=== PATIENT | male | born 1955 | race African-American/Black ===

== ENCOUNTER 2025-03-19 11:29 | Outpatient (CLI) | payer MEDICARE, SELFPAY ==
--- NOTE | 2025-03-19 | ECG_ITS ---
Test Date: 2025-03-19 12:03:54 Measurements Intervals [place] Rate: 99 P: 74 NV: 130 QRS: 51 QRSD: 90 T: 66 QT: 366 QTc: 471 Interpretive Statements SINUS RHYTHM WITH SINUS ARRHYTHMIA RIGHT ATRIAL ENLARGEMENT LEFT ATRIAL ENLARGEMENT ST ELEVATION IN ANTEROLATERAL LEALDS- PROBABLY EARLY REPOLARIZATION BASELINE ARTIFACT- I, II, III, AVR, AVL, AVF, V1-V2 BORDERLINE ECG No previous ECG available for comparison Electronically Signed On 03-20-2025 06:22:17 CDT by Hakeem Clark D.O.
--- OUTSIDE RECORDS SUMMARY | 2025-03-19 11:45 | XMS_ITS | Clinical Summary ---
Author Organization [facility] Address [address] [place] [address] Care Team Providers Care Trimmer Machine Name Role Phone Edel Lopez MD Primary Care Provider Source Comments [facility] [place],non-owned Affiliates and Associated Physician Practices is amultiple site organization consisting of ambulatory clinics and hospital sitesin [place], [place], [place]. This disclosure is being madepursuant to the Care Everywhere program and may not contain all information available regarding this patient. Last updated 18.[facility] Allergies No known active allergies Medications * Be aware that medications may not be up to date on this document. Alwaysverify current medications with the patient. atorvastatin (Lipitor) 10 MG tablet Take 1 (one) tablet by mouth as directed 11/28/2022 Active Narcan 4 MG/0.1ML nasal spray Joaquin 1 (one) spray into the nose as directed 01/03/2023 Active NIFEdipine CR osmotic 24hr (Procardia-XL) 30 MG tablet Take 1 (one) tablet by mouth once daily for blood pressure 11/09/2022 Active lidocaine (Lidoderm) 5 % patch apply ONE PATCH TO THE affected area(s) of THE SKIN ONCE daily FOR 12 hours (MAY wear UP TO 12 hours on/12 hours off) 01/05/2023 Active Xarelto 20 MG tablet Take 1 (one) tablet by mouth once daily 02/06/2023 Active DULoxetine (Cymbalta) 60 MG capsule Take 1 (one) capsule by mouth once daily Active HYDROcodone-melvi taminophen ([place]) 7.5-325 MG tablet Take 1 (one) tablet by mouth 3 times daily as needed Active Jardiance 25 MG tablet TAKE 1 TABLET BY MOUTH EVERY DAY DIRECTED FOR DIABETES MELLITUS Active metoprolol tartrate IR (Lopressor) 25 MG tablet Take 1 (one) tablet by mouth 2 times daily Active omeprazole (PriLOSEC) 40 MG capsule Take 1 (one) capsule by mouth once daily Active pioglitazone (Actos) 15 MG tablet Take 1 (one) tablet by mouth every morning for diabetes 06/03/2024 Active Active Problems Problem Noted Date Diagnosed Date CLL (chronic lymphocytic leukemia) 04/04/2023 Gastrointestinal hemorrhage 04/04/202303/20 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 Neck pain 02/08/2023 04/04/2023 Atrial fibrillation 02/06/2023 04/04/2023 Pulmonary emphysema 02/13/2022 04/04/2023 Localized, primary osteoarthritis of shoulder re gion 03/03/2021 04/04/2023 Steatosis of liver 12/02/2020 04/04/2023 Chronic alcoholism in remission 09/27/2020 04/04/2023 History of cervical spinal arthrodesis 9 04/04/2023 Mixed anxiety and depressive disorder 06/22/2019 04/04/2023 Personal history of malignant neoplasm of prosta te 11/26/2017 04/04/2023 Type 2 or unspecified type diabetes mellitus 04/04/2023 Malignant neoplasm of prostate 08/14/2017 Pre-op examination 08/14/2017 Benign hypertension 10/06/2016 04/04/2023 Cardiomyopathy 10/06/2016 04/04/2023 Current smoker 10/06/2016 04/04/2023 Other and unspecified hyperlipidemia 10/06/2016 04/04/2023 Encounters Date Type Department Care Team Description 03/05/2025 Orders Only [facility] [address] [place] [address] Gabibe Roman MD CLL (chronic lymphocytic leukemia) (HCC) 03/05/2025 Telephone [facility] [address] [place] [address] Kori Hightower 01/30/2025 Telephone [facility] [address] [place] [address] Shefali Casey 01/23/2025 Telephone [facility] [address] [place] [address] Mariola Still RN 01/23/2025 Telephone [facility] [address] [place] [address] Kori Hightower 01/22/2025 Telephone [facility] [address] [place] [address] Hightower, Kori 01/22/2025 Orders Only [facility] - Hematology/Oncology [address] [place] [address] Gabbie Roman MD CLL (chronic lymphocytic leukemia) (HCC) from Last 3 Months Immunizations Immunization Administration Dates Next Due COVID MODERNA BIVALENT 12Y+ 50MCG/0.5ML 04/29/20 Covid Moderna primary monova lent 12+ yr 0.5mL 12/14/2020,11/09/2020 Covid Moderna primary monova lent 6m-5yr 0.25ml 05/03/2022 Covid Pfizer primary monoval ent 12+ yr 0.3mL Purple cap 05/03/2022,07/27/2021 FLU VACCINE QUAD IIV4 SPLIT 0.25 ML IM ,05/18/2020,05/20/2019 FLU VACCINE TRI IIV3 SPLIT IM (FLUVIRIN) 017,05/14/2014,06/03/2013 INFLUENZA VACCINE 05/03/2022 INFLUENZA VACCINE, ADJUVANTE D, QUADR. (FLUAD QUADRIVALENT; 65Y+) (AIIV4) 04/29/2023,05/03/2022 INFLUENZA VACCINE, CELL CULT URE, QUADR. (FLUCELVAX QUADRIVALENT; 6MO+) (CCIIV4) 05/19/2020,05/30/2018 INFLUENZA VACCINE, TRIV. (FL UZONE; FLULAVAL; FLUARIX; AFLURIA TRIVALENT; 6MO+), 0.5 ML (IIV3) 04/27/2016,05/26/2015 PNEUMOCOCCAL PPSV23 03/30/2021,08/04/2019 Pneumococcal Pcv13 Conj 02/16/2021 TDAP (7yrs+) 08/17/2022,08/21/2016 Social History Tobacco Use Types Packs/Day Years Used Date Smoking Tobacco: Every Day Cigarettes Smokeless Tobacco: Never Tobacco Cessation:Ready to Q uit: Not Asked; Counseling Given: Not Answered Comments:Attempting to qiut Alcohol Use Standard Drinks/Week Comments Not Currently 0 (1 standard drink = 0.6 oz pur e alcohol) AUDIT-C Answer Date Recorded Q1: How often do you have a drink containing alcohol? Never 02/05/2023 Q2: How many drinks containi ng alcohol do you have on a typical day when you are drinking? Patient does not drink Q3: How often do you have si x or more drinks on one occasion? Never 02/05/2023 Sex and Gender Information Value Date Recorded Sex Assigned at Not on file Legal Sex Male 6:33 AM [employer] LEADER Gender Identity Not on file Sexual Orientation Not on file Last Filed Vital Signs Vital Sign Reading Time Taken Comments Blood Pressure 131/80 10/13/2024 9:14 AM [employer] LEADER Pulse 93 10/13/2024 9:14 AM [employer] LEADER Temperature 36.8 C (98.3 F) 10/13/2024 9:14 AM [employer] LEADER Respiratory Rate 18 09/26/2024 12:56 PM [employer] LEADER Oxygen Saturation 96% 10/13/2024 9:14 AM [employer] LEADER Inhaled Oxygen Concentration - - Weight 93 kg (205 lb) 10/13/2024 9:14 AM [employer] LEADER Height 185.4 cm (6' 1) 10/13/2024 9:14 AM [employer] LEADER Body Mass Index 27.05 10/13/2024 9:14 AM [employer] LEADER Plan of Treatment Upcoming Encounters Date Type Department Care Team (Late st Contact Info) Description 03/25/2025 2:00 PM CDT Appointment [facility] [address] [place] [address] Gabbie Roman MD [address] [place] [address] Health Maintenance Due Date Last Done Comments COLOGUARD (AGES 45-75) - COLON CA SCREENING 1955 CT COLONOGRAPHY - COLON CA SCREENING 1955 FIT - COLON CA SCREENING 1955 FLEX SIG - COLON CA SCREENING 1955 ZOSTER VACCINE (1 of 2) 11/02/1974 Respiratory Syncytial Virus (RSV) Vaccine Pt: or over 60 yrs (1 - Risk 60-74 years 1-dose series) 2015 COLON MONITORING 10/31/2020 10/31/2010 COLONOSCOPY - COLON CA SCREENING 10/31/2020 10/31/2010 Colorectal Cancer Screening 10/31/2020 AAA SCREENING 11/02/2020 DIABETES RETINOPATHY SCREENING 04/04/2023 DIABETES-FOOT EXAM WITH MONOFILAMENT 04/04/2023 DIABETES-HGB A1C 04/04/2023 08/10/2016 COVID-19 VACCINE ( season) 2024 04/29/2023, 05/03/2022, 05/03/2022, Additional history exists DEPRESSION SCREENING 08/20/2024 DIABETES - URINE PROTEIN SCREENING 08/20/2024 MEDICARE AWV CALENDAR YEAR 2024 INFLUENZA VACCINE (#1) 2025 , 04/29/2023, 05/03/2022, Additional history exists DIABETES-SERUM CREATININE 09/26/20252024, 06/20/2024, 11/21/2023, Additional history exists DTAP/TDAP/TD VACCINES (3 - Td or Tdap) 08/17/2032 08/17/2022, 08/21/2016 PNEUMOCOCCAL VACCINE 50+ Completed 021, 02/16/2021, 08/04/2019 HEPATITIS C SCREENING Completed 04/04/2023 HEPATITIS B VACCINE Aged Out No longe r eligible based on patient's age to complete this topic HIB VACCINE Aged Out No longer eligi ble based on patient's age to complete this topic HPV VACCINE Aged Out No longer eligi ble based on patient's age to complete this topic MENINGOCOCCAL (Group B) VACCINE SHARED DECISION-MAKING Aged Out No longer eligible based on patient's age to complete this topic MENINGOCOCCAL GROUPS A/C/Y/W VACCINE Aged Out No longer eligible based on patient's age to complete this topic Procedures Procedure Name Priority Date/Time Associated Diagnosis Comments COMPREHENSIVE METABOLIC PANEL STAT 09/26/2024 12:34 PM [employer] CLL (chronic lymphocytic leukemia) HEPATITIS C ANTIBODY Routine 04/04/2023 11:18 AM CDT Lymphocytic lymphoma HEMOGLOBIN A1C Routine 08/10/2016 11:44 PM [employer]ER ENDOSCOPY, COLON, SCREENING Routine 10/31/2010 from Last 3 Months or Most Recently Relevant to Health Maintenance Results * (ABNORMAL) COMPREHENSIVE METABOLIC PANEL (09/26/2024 12:34 PM [employer] LE[employer]ER) BUN 22 7 - 26 mg/dL 09/26/2024 1:10 PM [facility] Creatinine 1.01 0.71 - 1.16 mg/dL 09/26/2024 1:10 PM [facility] Sodium 138 136 - 145 mmol/L 09/26/2024 1:10 PM [facility] Potassium 4.3 3.5 - 4.5 mmol/L 09/26/2024 1:10 PM [facility] Chloride 101 98 - 107 mmol/L 09/26/2024 1:10 PM [facility] CO2 25 22 - 29 mmol/L 09/26/2024 1:10 PM [facility] Glucose 163(H) 70 - 99 mg/dL 09/26/2024 1:10 PM [facility] Calcium 10.1 8.4 - 10.2 mg/dL 09/26/2024 1:10 PM [facility] Protein Total 7.3 6.0 - 8.3 g/dL 09/26/2024 1:10 PM [facility] Albumin 5.0 3.4 - 5.0 g/dL 09/26/2024 1:10 PM [facility] Bilirubin Total 1.0 0.2 - 1.2 mg/dL 09/26/2024 1:10 PM [facility] Alkaline Phosphatase 96 40 - 150 U/L 09/26/2024 1:10 PM [facility] ALT 21 5 - 55 U/L 09/26/2024 1:10 PM [facility] AST 21 5 - 34 U/L 09/26/2024 1:10 PM [facility] Anion Gap 12 6 - 16 09/26/2024 1:10 PM [facility] BUN/Creatinine Ratio 22 7 - 23 09/26/2024 1:10 PM [facility] Osmolality Calculated 293 275 - 295 mOsm/kg 09/26/2024 1:10 PM [facility] Albumin/Globulin Ratio 2.2 1.1 - 2.3 09/26/2024 1:10 PM [facility] eGFR by CKD-EPI 81(L) >=90 mL/min/1.7 3 m2 09/26/2024 1:10 PM [facility] Blood BLOOD SPECIMEN / Unknown Venipuncture / Unknown 09/26/2024 12:34 PM [employer] 09/26/2024 12:39 PM [employer] Gabbie Roman MD LAB - CHEMISTRY ORDERABLES Final Result Performing Organization Address [facility]/ZIP Co de Phone Number [address] [address], [facility] [phone] * HEPATITIS C ANTIBODY (04/04/2023 11:18 AM CDT) [facility] Hepatitis C Antibody Non-react gregorio Non-reac tive 04/04/2023 12:22 PM CDT [facility] Comment:Hepatitis C Antibody screen indicates no serologic evidence of past or current infection with Hepatitis C Virus. Patients with unexplained liver disease who are immunocompromised or suspected of having acute Hepatitis C infection may benefit from Nucleic Acid Test (TED) for Hepatitis C Viral RNA to confirm Hepatitis C status. Blood BLOOD SPECIMEN / Unknown Venipuncture / Unknown 04/04/2023 11:18 AM CDT 04/04/2023 11:25 AM CDT us Gabbie Roman MD LAB - CHEMISTRY ORDERABLES Final Result Performing Organization Address City/[facility]/ZIP Co de Phone Number [address] [address], [facility] [phone] * HEMOGLOBIN A1C (08/10/2016 11:44 PM [employer] LE[employer]) Hemoglobin A1c 6.1 4.4 - 6.3 % [facility] Estimated Average Glucose 128 mg/dL [facility] Comment: HbA1c Interpretation: Treatment target values recommended by ADA and other clinical organizations should be used to evaluate metabolic control in patients. Treatment Target Values: Normal : < 5.7% Pre-diabetes: 5.7-6.4% Diabetes: Equal to or greater than 6.5% Reference: [place] Diabetes Association Standards of Care in Diabetes -2014 In patients 70 years and older consider HbA1c target range of 7.0-7.5% Reference: Diabetes Mellitus in Older People: Position Statement on behalf of the International Association of Gerontology and Geriatrics (IAGG), the Diabetes Working Constitution Party for Older People (EDWPOP), and the International Task Force of Experts in Diabetes. Noam Epps, et al. J [place] [employer] Association. 2012 Test results diagnostic of diabetes should be repeated for confirmation. The Tosoh G8 assay for the measurement of HbA1c is a National Glycohemoglobin Standardization Program (NGSP)certified method. Results for patients with HbE disease should be interpreted with caution as this hemoglobinopathy has been shown to interfere with the Tosoh G8 assay. Blood specimen (specimen) BLOOD SPECIMEN / Unknown 08/10/2016 11:44 PM [employer] LE[employer]ER 08/11/2016 7:33 AM [employer] LEADER us Ced Larios MD LAB - CHEMISTRY ORDERABLES Fi nal Result [address] [phone] * ENDOSCOPY, COLON, SCREENING (10/31/2010) Diane South DO GI PROCEDURE ORDERABLES Final Result from Last 3 Months or Most Recently Relevant to Health Maintenance Insurance [employer] MEDICARE ADV HMO & PPO [facility] MEDICARE ADV Advance Directives * Full Code (Latest Code Status on File) Date Activated Date Inactivated Comments 08/14/2017 12:04 PM 08/17/2017 1:33 PM Care Teams Trimmer Machine Relationship Specialty Start Date End Date Edel Lopez MD [address] [place], [place] [phone] PCP - General Internal Medicine 02/06/23
--- OUTSIDE RECORDS SUMMARY | 2025-03-19 11:45 | XMS_ITS | Clinical Summary ---
Author Organization [facility] Address [address] [place] [address] Phone Care Team Providers Care Research Hydrologist Name Role Phone Edel Lopez MD Primary Care Provider Allergies No known active allergies Medications NIFEdipine (PROCARDIA-XL) 30 MG TABLET SR 24 HR TAKE ONE TABLET BY MOUTH EVERY DAY FOR BLOOD PRESSURE 3 Active atorvastatin (LIPITOR) 10 MG Tablet TAKE ONE TABLET BY MOUTH EVERY DAY TO LOWER CHOLESTEROL 3 Active DULoxetine (CYMBALTA) [address] Particles Take 60 mg by mouth daily. 3 Active HYDROcodone-melvi taminophen ([place]) 5-325 MG Tablet TAKE ONE TABLET BY MOUTH THREE TIMES DAILY NEEDED 3 Active Ferrous Sulfate (Iron) 325 (65 Fe) MG Tablet Take by mouth. A ctive Multiple Vitamin (MULTIVITAMIN PO) Take by mouth. Activ e Active Problems Problem Noted Date Diagnosed Date Prostate cancer 01/23/2023 Diabetes mellitus 06/01/2020 Benign hypertension 06/01/2020 Immunizations Immunization Administration Dates Next Due Influenza Vaccine, MDCK,quadrivalent, pres free 05/19/2020 Influenza, Quadrivalent, Adjuvanted 05/03/2022 Family History Medical History Relation Name Comments Cancer Brother High Cholesterol Father Stroke Father Diabetes Mother Hypertension Mother Breast Cancer Sister Relation Name Status Comments Brother pancreatic Father Mother Sister Social History Tobacco Use Types Packs/Day Years Used Date Smoking Tobacco: Every Day Cigarettes Smokeless Tobacco: Never Alcohol Use Standard Drinks/Week Comments Not Currently 0 (1 standard drink = 0.6 oz pur e alcohol) Sex and Gender Information Value Date Recorded Sex Assigned at Not on file Legal Sex Male 3:40 PM CDT Gender Identity Not on file Sexual Orientation Not on file Last Filed Vital Signs Vital Sign Reading Time Taken Comments Blood Pressure 142/96 02/06/2023 11:11 AM CDT Pulse 126 02/06/2023 11:11 AM CDT Temperature 36.6 C (97.8 F) 02/06/2023 11:11 AM CDT Respiratory Rate 18 02/06/2023 11:1 1 AM CDT Oxygen Saturation 97% 02/06/2023 11: 11 AM CDT Inhaled Oxygen Concentration - - Weight 98.8 kg (217 lb 14.4 oz) 023 11:11 AM CDT Height 185.4 cm (6' 1) 02/06/2023 11:1 1 AM CDT Body Mass Index 28.75 02/06/2023 11:11 AM CDT Plan of Treatment Health Maintenance Due Date Last Done Comments Diabetes: Eye Exam 1955 Diabetes: Foot Exam 1955 Diabetes: Hemoglobin A1c 1955 Hepatitis C Virus (HCV) Screening 1955 Zoster Immunization (1 of 2) 11/02/1974 Cologuard 11/02/2000 Immunochemical Fecal Occult Blood 11/02/2000 Diabetes: Nephropathy Screening 02/07/2024 02/06/2023, 01/23/2023 SARS-COV-2 Immunization ( season) 2024 04/29/2023, 05/03/2022, 07/27/2021, Additional history exists Influenza Immunization (#1) 2025 09, 05/03/2022, 05/25/2021, Additional history exists Respiratory Syncytial Virus (RSV) Immunization (Adult) (1 - 1-dose 75+ series) 11/02/2030 Colonoscopy 01/31/2031 01/31/2021, 06/27/2020 Colorectal Cancer Screening 01/31/2031 Pneumococcal Immunization (50+ years) Completed 03/30/2021, 02/16/2021, 08/04/2019 DTaP/Tdap/Td Immunization Discontinued 08/17/2022, 09/2016 TdaP Immunization Completed 08/17/2022, 08/21/2016 Hepatitis B Immunization Aged Out No longer eligible based on patient's age to complete this topic Human Papillomavirus (HPV) Immunization Aged Out No longer eligible based on patient's age to complete this topic Meningococcal Immunization (ACWY) Aged Out No longer eligible based on patient's age to complete this topic Rotavirus Immunization Aged Out No lo nger eligible based on patient's age to complete this topic Procedures Procedure Name Priority Date/Time Associated Diagnosis Comments CMP (COMPREHENSIVE METABOLIC PANEL) Routine 02/06/2023 11:49 AM CDT Serum calcium elevated from Last 3 Months or Most Recently Relevant to Health Maintenance Results * (ABNORMAL) CMP (COMPREHENSIVE METABOLIC PANEL) (02/06/2023 11:49 AM CDT) Glucose 284(H) 70 - 105 mg/dL [facility] Blood Urea Nitrogen 21 7 - 25 mg/dL [facility] Creatinine 1.2 0.7 - 1.3 mg/dL [facility] Sodium 138 136 - 145 mEq/L [facility] Potassium 4.5 3.5 - 5.1 mEq/L [facility] Chloride 101 98 - 107 mEq/L [facility] Bicarbonate 27 21 - 31 mEq/L [facility] Total Bilirubin 0.8 0.3 - 1.0 mg/dL [facility] Alk. Phosphatase 99 34 - 104 U/L [facility] Aspartate Aminotransferase 15 13 - 39 U/L [facility] Alanine Aminotransferase 21 7 - 52 U/L [facility] Total Protein 6.4 6.4 - 8.9 g/dL [facility] Albumin 4.5 3.5 - 5.7 g/dL [facility] Calcium 10.0 8.6 - 10.3 mg/dL [facility] Anion Gap 14.5 7.0 - 15.0 mEq/L [facility] Globulin 1.9(L) 2.0 - 3.5 g/dL [facility] EGFR 66 >60 ml/min/1. 73m2 [facility] Comment: This eGFR is calculated using 2020 CKD-EPI Creatinine equation without race modifier based on the NKF-ASN task force recommendations Blood 02/06/2023 11:4 9 AM CDT Narrative [facility] - 02/06/2023 12:51 PM CDT Release to patient->Immediate IS THE PATIENT REQUIRED TO BE FASTING FOR 8 HOURS?->No Shirlene Ng MD CHEMISTRY ORDERABLES Final Resul t [facility] [address] [phone], from Last 3 Months or Most Recently Relevant to Health Maintenance Insurance MEDICARE C [employer] MEDICARE C [employer] Care Teams Research Hydrologist Relationship Specialty Start Date End Date Edel Lopez MD [address] [place] [address] PCP - General Internal Medicine 01/16/23
--- OUTSIDE RECORDS SUMMARY | 2025-03-19 11:45 | XMS_ITS ---
Author Organization [facility] Address [address] [place] [address] Care Team Providers Care Oracle Fusion Middleware Developer Name Role Phone Edel Lopez MD Primary Care Provider Active Problems Problem Noted Date Diagnosed Date [...] 04/04/2023 Other and unspecified hyperlipidemia 10/06/2016 04/04/2023 Current Treatment and Therapy Plans No current plan information found. Past Treatment and Therapy Plans No past plan information found. Lifetime Dose Tracking * Chemical Lifetime Dose Automatic Entry Manual Entr y Dose Length Product 2,951.5 mGy-cm 2,951.5 mGy-cm 0 mG y-cm
[2025-03-19 12:51] LABS: Hematocrit 46.9 % (42.0-52.0); Hemoglobin 15.6 g/dL (14.0-18.0); Immature Granulocyte Percent A 0.5 % (0-0.5); Lymphocytes Absolute Auto 7.77 K/mm3 (0.9-3.2); Mean Corpuscular HGB Conc 33.3 g/dl (32-36); Mean Corpuscular Hemoglobin 31.0 pg (26-34); Mean Corpuscular Volume 93.1 fl (80-100); Nucleated Red Blood Cells Absolute Auto 0.000 K/mm3 (0.0-0.012); Nucleated Red Blood Cells Perc 0.0 % (0.0-0.2); Platelet Count Result 149 k/mm3 (150-375); Red Blood Count 5.04 M/mm3 (4.6-6.20); White Blood Count 14.3 K/mm3 (4.5-10.0)
[2025-03-19 13:22] LABS: Add Urine Microscopic? YES; Appearance Urine Clear (Clear); Glucose Urine UA Negative (Negative); Leukocyte Esterase Ur 2+ LEU/UL (Negative); Need Manual Microscopic Reviewed; Nitrate Urine Positive (Negative); Non Pathogenic Casts 0-2; Specific Grav Ur 1.023 (1.001-1.035)
[2025-03-19 13:23] LABS: Alanine Aminotransferase 75 U/L (6-50); Albumin Level 4.8 g/dL (3.5-5.1); Alkaline Phosphatase 79 U/L (38-126); Anion Gap 10 mmol/L (4-12); Aspartate Amino Transferase 63 U/L (17-59); Bilirubin,Total 1.0 mg/dL (0.2-1.3); Blood Urea Nitrogen 17 mg/dL (9-20); CRP < 0.5 mg/dL (<1.0); Calcium 10.4 mg/dL (8.4-10.2); Carbon Dioxide 27 mmol/L (22-30); Chloride 96 mmol/L (98-107); Estimated Glomerular Filt Rate > 60; Glucose 174 mg/dL (65-110); Potassium 3.7 mmol/L (3.4-5.0); Sodium 133 mmol/L (137-145); Total Protein 7.5 g/dL (6.3-8.2)
== END 2025-03-19 11:30 | disposition home or self-care (01) ==
PROVIDERS: PCP Internal Medicine Infectious Disease; Visit Provider Nurse Practitioner Family
DX: Z01.818 Encounter for other preprocedural examination (principal); Z79.899 Other long term (current) drug therapy
CPT/HCPCS: 36415; 80053; 81001; 85025; 85652; 86140; 87086; 93005

== ENCOUNTER 2025-03-31 07:57 | Outpatient (CLI) | payer MEDICARE, SELFPAY ==
--- OUTSIDE RECORDS SUMMARY | 2025-03-31 08:02 | XMS_ITS | Clinical Summary ---
Author Organization [facility] Address [address] [place] [address] Care Team Providers Care Clinical Massage Therapist Name Role Phone Edel Lopez MD Primary Care Provider Source Comments [facility] [employer],non-owned Affiliates and Associated Physician Practices is amultiple site organization consisting of ambulatory clinics and hospital sitesin [place], [place], [place] and [place]. This disclosure is being madepursuant to the Care Everywhere program and may not contain all information available regarding this patient. Last updated 18.[facility] [employer] Allergies No known active allergies Medications * Be aware that medications may not be up to date on this document. Alwaysverify current medications with the patient. atorvastatin (Lipitor) 10 MG tablet Take 1 (one) tablet by mouth as directed 11/28/2022 Active Narcan 4 MG/0.1ML nasal spray [place] 1 (one) spray into the nose as [...] by mouth once daily Active HYDROcodone-melvi taminophen ([place]) 7.5-325 MG tablet Take 1 (one) tablet [...] Encounters Date Type Department Care Team Description 03/24/2025 Orders Only [facility] [address] [place] [address] Gabbie Roman MD CLL (chronic lymphocytic leukemia) (HCC) 03/24/2025 Telephone [facility] [address] [place] [address] Kori Hightower 03/05/2025 Orders Only [facility] [address] [place] [phone] Gabbie Roman MD CLL (chronic lymphocytic leukemia) ([facility]) 03/05/2025 Telephone [facility] [address] [place] [address] Kori Hightower 01/30/2025 Telephone [facility] [address] [place] [phone] Shefali Casey 01/23/2025 Telephone [facility] [address] [place] [address] Mariola Still RN 01/23/2025 Telephone [facility] [address] [place] [address] Kori Hightower 01/22/2025 Telephone [facility] [address] [place] [address] Campbell, Kori 01/22/2025 Orders Only [facility] - Hematology/Oncology [address] [place] [phone] Gabbie Roman MD CLL (chronic lymphocytic leukemia) ([facility]) from Last 3 Months Immunizations Immunization Administration [...] on file Legal Sex Male 6:33 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 Gender Identity Not on file Sexual Orientation Not on file Last Filed Vital Signs Vital Sign Reading Time Taken Comments Blood Pressure 131/80 10/13/2024 9:14 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 Pulse 93 10/13/2024 9:14 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 Temperature 36.8 C (98.3 F) 10/13/2024 9:14 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 Respiratory Rate 18 09/26/2024 12:56 PM [employer] Oxygen Saturation 96% 10/13/2024 9:14 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 Inhaled Oxygen Concentration - - Weight 93 kg (205 lb) 10/13/2024 9:14 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 Height 185.4 cm (6' 1) 10/13/2024 9:14 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 Body Mass Index 27.05 10/13/2024 9:14 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 Plan of Treatment Health Maintenance Due Date [...] COMPREHENSIVE METABOLIC PANEL STAT 09/26/2024 12:34 PM [employer] CLL (chronic lymphocytic leukemia) HEPATITIS C ANTIBODY Routine 04/04/2023 11:18 AM CDT Lymphocytic lymphoma HEMOGLOBIN A1C Routine 08/10/2016 11:44 PM [employer] ENDOSCOPY, COLON, SCREENING Routine 10/31/2010 from Last 3 Months or Most Recently Relevant to Health Maintenance Results * (ABNORMAL) COMPREHENSIVE METABOLIC PANEL (09/26/2024 12:34 PM [employer]) BUN 22 7 - 26 mg/dL 09/26/2024 1:10 PM [facility] Creatinine 1.01 0.71 - 1.16 mg/dL 09/26/2024 1:10 PM [facility] Sodium 138 136 - 145 mmol/L 09/26/2024 1:10 PM [facility] Potassium 4.3 3.5 - 4.5 mmol/L 09/26/2024 1:10 PM [facility] Chloride 101 98 - 107 mmol/L 09/26/2024 1:10 PM [facility] CO2 25 22 - 29 mmol/L 09/26/2024 1:10 PM [facility] Glucose 163(H) 70 - 99 mg/dL 09/26/2024 1:10 PM [facility] Calcium 10.1 8.4 - 10.2 mg/dL 09/26/2024 1:10 PM [facility] Protein Total 7.3 6.0 - 8.3 g/dL 09/26/2024 1:10 PM [facility] Albumin 5.0 3.4 - 5.0 g/dL 09/26/2024 1:10 PM [facility] Bilirubin Total 1.0 0.2 - 1.2 mg/dL 09/26/2024 1:10 PM [facility] Alkaline Phosphatase 96 40 - 150 U/L 09/26/2024 1:10 PM [facility] ALT 21 5 - 55 U/L 09/26/2024 1:10 PM [facility] AST 21 5 - 34 U/L 09/26/2024 1:10 PM [facility] Anion Gap 12 6 - 16 09/26/2024 1:10 PM [facility] BUN/Creatinine Ratio 22 7 - 23 09/26/2024 1:10 PM [facility] Osmolality Calculated 293 275 - 295 mOsm/kg 09/26/2024 1:10 PM [facility] Albumin/Globulin Ratio 2.2 1.1 - 2.3 09/26/2024 1:10 PM [facility] eGFR by CKD-EPI 81(L) >=90 mL/min/1.7 3 m2 09/26/2024 1:10 PM [facility] Blood BLOOD SPECIMEN / Unknown Venipuncture / Unknown 09/26/2024 12:34 PM [facility] [facility] 09/26/2024 12:39 PM [employer] Gabbie Roman MD LAB - CHEMISTRY ORDERABLES Final Result Performing Organization Address City/[facility]/ZIP Co de Phone Number [address] [address], [facility] [phone] * HEPATITIS C ANTIBODY (04/04/2023 11:18 AM CDT) Pathologist [facility] Hepatitis C Antibody Non-react gregorio Non-reac tive 04/04/2023 12:22 PM [facility] Comment:Hepatitis C Antibody screen indicates no [...] 11:18 AM CDT 04/04/2023 11:25 AM CDT Gabbie Roman MD LAB - CHEMISTRY ORDERABLES Final Result Performing Organization Address City/[facility]/ZIP Co de Phone Number [address] [address], [place] [phone] * HEMOGLOBIN A1C (08/10/2016 11:44 PM [employer]) Hemoglobin A1c 6.1 4.4 - 6.3 % [facility] Estimated Average Glucose 128 mg/dL [facility] Comment: HbA1c Interpretation: Treatment target values recommended by ADA and other clinical organizations should be used to evaluate metabolic control in patients. Treatment Target Values: Normal : < 5.7% Pre-diabetes: 5.7-6.4% Diabetes: Equal to or greater than 6.5% Reference: [place] [employer] Standards of Care in Diabetes -2014 In patients 70 years and older consider HbA1c target range of 7.0-7.5% Reference: Diabetes Mellitus in Older People: Position Statement on behalf of the International Association of Gerontology and Geriatrics (IAGG), the Diabetes Working Republican for Older People (EDWPOP), and the International Task Force of Experts in Diabetes. Noam Epps, et al. J [place] [employer]. 2012 Test results diagnostic [...] BLOOD SPECIMEN / Unknown 08/10/2016 11:44 PM [employer] 08/11/2016 7:33 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 Ced Larios MD LAB - CHEMISTRY ORDERABLES Fi nal Result [facility] [place] [address], [facility] [phone] * ENDOSCOPY, COLON, SCREENING (10/31/2010) us Diane South DO GI PROCEDURE ORDERABLES Final Result from Last 3 Months or Most Recently Relevant to Health Maintenance Insurance [employer] MEDICARE ADV HMO & PPO [facility] MEDICARE ADV Advance Directives * Full Code (Latest Code Status on File) Date Activated Date Inactivated Comments 08/14/2017 12:04 PM 08/17/2017 1:33 PM Care Teams Clinical Massage Therapist Relationship Specialty Start Date End Date Edel Lopez MD [address] [place], [place] [phone] PCP - General Internal Medicine 02/06/23
--- OUTSIDE RECORDS SUMMARY | 2025-03-31 08:02 | XMS_ITS | Clinical Summary ---
Author Organization [facility] Address [address] [place] [address] Phone Care Team Providers Care Shade Matcher Name Role Phone Edel Lopez MD Primary [...] 70 - 105 mg/dL [facility] Blood Urea Nitrogen 21 7 - 25 mg/dL [facility] Creatinine 1.2 0.7 - 1.3 mg/dL [facility] Sodium 138 136 - 145 mEq/L [facility] Potassium 4.5 3.5 - 5.1 mEq/L [facility] Chloride 101 98 - 107 mEq/L [facility] Bicarbonate 27 21 - 31 mEq/L [facility] Total Bilirubin 0.8 0.3 - 1.0 mg/dL [facility] Alk. Phosphatase 99 34 - 104 U/L [facility] Aspartate Aminotransferase 15 13 - 39 U/L [facility] Alanine Aminotransferase 21 7 - 52 U/L [facility] Total Protein 6.4 6.4 - 8.9 g/dL [facility] Albumin 4.5 3.5 - 5.7 g/dL [facility] Calcium 10.0 8.6 - 10.3 mg/dL [facility] Anion Gap 14.5 7.0 - 15.0 mEq/L [facility] Globulin 1.9(L) 2.0 - 3.5 g/dL [facility] EGFR 66 >60 ml/min/1. 73m2 [facility] Comment: This eGFR is calculated using 2020 CKD-EPI Creatinine equation without race modifier based on the NKF-ASN task force recommendations Blood 02/06/2023 11:4 9 AM CDT Narrative [facility] - 02/06/2023 12:51 PM CDT Release to patient->Immediate IS THE PATIENT REQUIRED TO BE FASTING FOR 8 HOURS?->No Shirlene Ng MD CHEMISTRY ORDERABLES Final Resul t [facility] [address] [phone], from Last 3 Months or Most Recently Relevant to Health Maintenance Insurance MEDICARE C [employer] MEDICARE C [employer] Care Teams Shade Matcher Relationship Specialty Start Date End Date Edel Lopez MD [address] [place] [address] PCP - General Internal Medicine 01/16/23
--- OUTSIDE RECORDS SUMMARY | 2025-03-31 08:02 | XMS_ITS ---
Author Organization [facility] Address [address] [place] [address] Care Team Providers Care Automotive Warranty Administrator Name Role Phone Edel Lopez MD Primary [...]
[2025-03-31 08:26] LABS: Hematocrit 46.0 % (42.0-52.0); Hemoglobin 15.0 g/dL (14.0-18.0); Immature Granulocyte Percent A 0.3 % (0-0.5); Lymphocytes Absolute Auto 8.38 K/mm3 (0.9-3.2); Mean Corpuscular HGB Conc 32.6 g/dl (32-36); Mean Corpuscular Hemoglobin 30.7 pg (26-34); Mean Corpuscular Volume 94.3 fl (80-100); Nucleated Red Blood Cells Absolute Auto 0.000 K/mm3 (0.0-0.012); Nucleated Red Blood Cells Perc 0.0 % (0.0-0.2); Platelet Count Result 484 k/mm3 (150-375); Red Blood Count 4.88 M/mm3 (4.6-6.20); White Blood Count 15.0 K/mm3 (4.5-10.0)
[2025-03-31 08:58] LABS: Schistocytes None Seen
== END 2025-03-31 07:58 | disposition home or self-care (01) ==
PROVIDERS: PCP Internal Medicine Infectious Disease; Visit Provider Pain Medicine Pain Medicine
DX: Z01.818 Encounter for other preprocedural examination (principal); Z79.899 Other long term (current) drug therapy
CPT/HCPCS: 36415; 85025

== ENCOUNTER 2025-04-30 08:50 | Outpatient (CLI) | payer MEDICARE, SELFPAY ==
--- NOTE | ~2025-04-30 | XR_ITS ---
EXAMINATION: XR chest 2V, 04/30/2025 8:58 CDT HISTORY: Leukocytosis, SMOKER, INCREASED BP COMPARISON: No comparisons available. Technique: 2 views obtained. Findings: Elevation left hemidiaphragm otherwise the lungs are clear No pneumothorax. Heart is normal size. Mediastinal and hilar contours are within normal limits. Bony thorax no acute abnormality. Impression: No acute cardiopulmonary abnormality. Reviewed, dictated and finalized at location A. Impression: No acute cardiopulmonary abnormality.
--- OUTSIDE RECORDS SUMMARY | 2025-04-30 09:25 | XMS_ITS | Clinical Summary ---
Author Organization [facility] Address [address] [place] [address] Phone Care Team Providers Care Hand Ornament Maker Name Role Phone Edel Lopez MD Primary [...] Maintenance Due Date Last Done Comments Diabetes: Foot Exam 1955 Cologuard 11/02/2000 Immunochemical Fecal Occult Blood 11/02/2000 Diabetes: Hemoglobin A1c 02/08/2017 08/10/2016 Diabetes: Eye Exam 12/09/2023 12/08/2022 Diabetes: Nephropathy Screening 02/07/2024 02/06/2023, 01/23/2023 Influenza Immunization (#1) 04/20/202503/21, 04/29/2023, 05/03/2022, Additional history exists SARS-COV-2 Immunization (7 - Mixed Product risk 2023- season) 04/20/2025 05/30/2024, 04/29/2023, 05/03/2022, Additional history exists Respiratory Syncytial Virus (RSV) Immunization (Adult) (1 - 1-dose 75+ series) 11/02/2030 Colonoscopy 01/31/2031 01/31/2021, 06/27/2020 Colorectal Cancer Screening 01/31/2031 Pneumococcal Immunization (50+ years) Completed 03/30/2021, 02/16/2021, 08/04/2019 DTaP/Tdap/Td Immunization Discontinued 08/17/2022, 09/2016 TdaP Immunization Completed 08/17/2022, 08/21/2016 Hepatitis C Virus (HCV) Screening Completed 04/04/2023 Zoster Immunization Completed 06/13/2024, Hepatitis B Immunization Aged Out No longer [...] 70 - 105 mg/dL [facility] Blood Urea Nitrogen 21 7 - 25 mg/dL [facility] Creatinine 1.2 0.7 - 1.3 mg/dL [facility] Sodium 138 136 - 145 mEq/L [facility] Potassium 4.5 3.5 - 5.1 mEq/L [facility] Chloride 101 98 - 107 mEq/L [facility] Bicarbonate 27 21 - 31 mEq/L [facility] Total Bilirubin 0.8 0.3 - 1.0 mg/dL [facility] Alk. Phosphatase 99 34 - 104 U/L [facility] Aspartate Aminotransferase 15 13 - 39 U/L [facility] Alanine Aminotransferase 21 7 - 52 U/L [facility] Total Protein 6.4 6.4 - 8.9 g/dL [facility] Albumin 4.5 3.5 - 5.7 g/dL [facility] Calcium 10.0 8.6 - 10.3 mg/dL [facility] Anion Gap 14.5 7.0 - 15.0 mEq/L [facility] Globulin 1.9(L) 2.0 - 3.5 g/dL [facility] EGFR 66 >60 ml/min/1. 73m2 [facility] Comment: This eGFR is calculated using 2020 CKD-EPI Creatinine equation without race modifier based on the NKF-ASN task force recommendations Blood 02/06/2023 11:4 9 AM CDT Narrative [facility] - 02/06/2023 12:51 PM CDT Release to patient->Immediate IS THE PATIENT REQUIRED TO BE FASTING FOR 8 HOURS?->No us Shirlene Ng MD CHEMISTRY ORDERABLES Final Resul t [facility] [address] [place] [address], from Last 3 Months or Most Recently Relevant to Health Maintenance Insurance MEDICARE C [employer] MEDICARE C [employer] Care Teams Hand Ornament Maker Relationship Specialty [place] [address] [place] [address] PCP - General Internal Medicine 01/16/23
== END 2025-04-30 08:51 | disposition home or self-care (01) ==
LOC: ANHIMG 08:53
PROVIDERS: PCP Internal Medicine Infectious Disease; Visit Provider Internal Medicine Infectious Disease
DX: D72.829 Elevated white blood cell count, unspecified (principal)
CPT/HCPCS: 71046